=== PATIENT | female | born 1960 | race Caucasian/White ===

== ENCOUNTER 2017-11-11 08:00 | Outpatient (CLI) | payer OTHER | END 2017-11-11 23:59 | disposition home or self-care (01) | LOC: RAD 08:00 | DX: Z02.9 Encounter for administrative examinations, unspecified (principal) | CPT/HCPCS: 74430 ==

== ENCOUNTER 2018-11-21 07:59 | Day surgery (SDC) | payer OTHER ==
[2018-11-21] MEDS ORDERED: POLYMYXIN/BACITRACIN 1L IRRIG (09:18)
[2018-11-21] MEDS ORDERED: MIDAZOLAM 1 MG/ML 2 ML INJ ×3 (09:31→09:41)
[2018-11-21] MEDS ORDERED: FENTAnyl 50 MCG/ML VIAL (09:36)
[2018-11-21] MEDS ORDERED: CEFAZOLIN 1 GM INJ (09:39)
[2018-11-21] MEDS ORDERED: PROPOFOL 20 ML (09:45)
[2018-11-21] MEDS: LIDOCAINE 2% (MDV) 20 ML INJ (09:57)
[2018-11-21] MEDS ORDERED: KETOROLAC 15 MG INJ IV (10:00)
[2018-11-21] MEDS ORDERED: DIPHENHYDRAMINE 50 MG INJ IV (10:00)
[2018-11-21] MEDS ORDERED: ONDANSETRON 4 MG INJ IV (10:00)
[2018-11-21] MEDS: BUPIVACAINE 0.5% (SDV) 30 ML INJ (10:00)
[2018-11-21] MEDS ORDERED: LORAZEPAM 2 MG INJ IV (10:00)
[2018-11-21] MEDS ORDERED: OXYCODONE/ACETAMINOPHEN (5/325) TAB PO (10:00)
[2018-11-21] MEDS ORDERED: METOCLOPRAMIDE 10 MG INJ IV (10:00)
[2018-11-21] MEDS ORDERED: morphine (1 MG/ML) 10ML SYRINGE IV (10:00)
[2018-11-21] MEDS ORDERED: hydrALAzine 20 MG INJ IV (10:00)
[2018-11-21] MEDS ORDERED: MEPERIDINE 25 MG INJ IV (10:00)
[2018-11-21] MEDS ORDERED: HYDROmorphONE 1 MG/5 ML IV SYRINGE IV (10:00)
[2018-11-21] MEDS ORDERED: ALBUTEROL 0.083% (NEB) 2.5 MG/3 ML AMP HHN (10:00)
[2018-11-21] MEDS ORDERED: FENTAnyl 50 MCG/ML VIAL IV (10:00)
[2018-11-21] MEDS ORDERED: LABETALOL HCL 20MG INJ IV (10:00)
== END 2018-11-21 11:40 | disposition home or self-care (01) ==
LOC: SDS 07:59
DX: M67.472 Ganglion, left ankle and foot (principal); I10 Essential (primary) hypertension
CPT/HCPCS: 28090

== ENCOUNTER 2019-02-26 10:17 | Day surgery (SDC) | payer OTHER ==
[2019-02-26] MEDS: DESMOPRESSIN 12 MCG in SOD CHLORIDE 0.9% 50 ML IV ×2 (11:36→11:57)
[2019-02-26] MEDS ORDERED: PROPOFOL 60 ML (13:26)
[2019-02-26] MEDS ORDERED: LIDOCAINE 2% (SDV) 5 ML INJ (13:26)
[2019-02-26] MEDS ORDERED: PROPOFOL 20 ML (13:54)
== END 2019-02-26 14:44 | disposition home or self-care (01) ==
LOC: GIL 10:17
DX: D12.5 Benign neoplasm of sigmoid colon (principal); K63.5 Polyp of colon; K64.4 Residual hemorrhoidal skin tags
CPT/HCPCS: 45380; 88305